=== PATIENT | female | born 1985 ===

== ENCOUNTER → 2020-07-27 | Outpatient (CLI) | payer OTHER ==
--- NOTE | 2020-07-27 15:47 | REP ---
INDICATION: DISP FX OF DISTAL PHALANX OF LEFT RING FINGER, INIT. COMPARISON: None. TECHNIQUE: Four views of the 4th digit of the left hand. FINDINGS: There is a large dorsal plate fracture of the distal phalanx of the 4th digit. There is associated soft tissue swelling. IMPRESSION: Fracture as described above. Sign report <Electronically signed by Jermaine Jameson > 07/27/20 [id number]
== END ==
LOC: M SOG 15:19
PROVIDERS: ATTEND Orthopaedic Surgery Sports Medicine
DX: S62.635A Displaced fracture of distal phalanx of left ring finger, initial encounter for closed fracture (principal); M79.89 Other specified soft tissue disorders; X58.XXXA Exposure to other specified factors, initial encounter; Y92.9 Unspecified place or not applicable